=== PATIENT | male | born 1965 | race Caucasian/White ===

== ENCOUNTER 2017-10-06 05:23 | Day surgery (SDC) | payer BC, OTHER ==
[~2017-10-06] VITALS: Ht 180.3 cm; Wt 86.8 kg
--- NOTE | ~2017-10-06 | EKG ---
[place] [address] [address] [facility] [place] [address] ELECTROCARDIOGRAM REPORT Name: GEORGIE RICHARDSON Room #: DEP [facility]..#: [id number] Admission: 10/06/17 Attend Phys: Ajay Charles MD Discharge: 10/06/17 Date of : 61 Report #: [id number] THIS REPORT FOR: //name// [facility] Test Date: 2017-10-06 Test Time: 10:02:08 Pat Name: GEORGIE RICHARDSON Department: Room: 150 2 Gender: M Logger All Round: DENIA : 1965 Requested By: Ajay Charles Order Number: [id number] MD: Satya Forrest Measurements Intervals [place] Rate: 75 P: 42 OR: 164 QRS: 5 QRSD: 90 T: 38 QT: 393 QTc: 439 Interpretive Statements Sinus rhythm Probable left atrial enlargement Early R-wave progression No previous ECG available for comparison Electronically Signed On 10-06-2017 16:49:15 CDT by Satya Forrest [email or web address] <ELECTRONICALLY SIGNED> By: Satya Forrest MD, [facility] 10/06/17 1649 1002 1002 Satya Forrest MD, FACC /EPI
--- NOTE | ~2017-10-06 | O ---
[facility] [place] [address] OPERATIVE REPORT Name: GEORGIE RICHARDSON Room #: DEP [facility]..#: [id number] Admission: 10/06/17 Attend Phys: Ajay Charles MD Discharge: 10/06/17 Date of : 61 Report #: [id number] THIS REPORT FOR: //name// CC: Clayton Charles DATE OF SERVICE: 10/06/2017 PREOPERATIVE DIAGNOSIS: Left knee possible medial meniscus tear. POSTOPERATIVE DIAGNOSIS: Left knee pathologic medial plica. PROCEDURE: Diagnostic left knee arthroscopy with medial plica excision. SURGEON: Ajay Charles MD BASS FISHER: Giselle Tan PA-C. ANESTHESIA: LMA. TOURNIQUET TIME: 12 minutes. COMPLICATIONS: None. SPECIMENS: None. CONDITION UPON LEAVING THE OPERATING ROOM: Stable. INDICATIONS FOR PROCEDURE: The patient is a 52-year-old gentleman who has had medial-sided left knee pain and catching. He has had a previous arthroscopy of his knee with a meniscus surgery of some sort that he was unsure of. He has had continued medial knee pain with symptoms and after discussion with him, he elected for diagnostic left knee arthroscopy with partial medial meniscectomy versus plica excision. DESCRIPTION OF PROCEDURE: Risks, benefits, alternatives and complications were discussed in detail with the patient including but not limited to risk of anesthesia, risk of damage to nerves, arteries and blood vessels, risk for infection and bleeding, risk for continued knee pain and need for reoperation. Informed consent was obtained. The patient's left knee was appropriately marked in the preoperative holding area. IV Ancef was given for preoperative antibiotics. He was brought to the operating room and placed in supine position on operating room table. LMA anesthesia was induced without complication. Tourniquet was placed on the left thigh. Left lower extremity was prepped and draped in normal sterile fashion. Timeout was performed properly identifying the patient and procedure as well as the instrumentation. All in the operating [address] [address] OPERATIVE REPORT Name: DEBRAELSA Room #: [facility] [facility] [place].#: [id number] Admission: 10/06/17 Attend Phys: Ajay Charles MD Discharge: 10/06/17 Date of : 61 Report #: [id number] room were in agreement. Left lower extremity was exsanguinated, tourniquet was inflated. Tourniquet time was 12 minutes. Standard anterolateral portal was established with an 11 blade through the skin. Arthroscope was introduced into the patellofemoral compartment. Diagnostic arthroscopy was undertaken. Patellofemoral compartment was visualized and found to be without pathology. Medial gutter was visualized and found to have a thickened medial plica. Medial compartment was visualized and medial portal was established under arthroscopic visualization. Probe was introduced into the medial compartment and there was noted to be an intact medial meniscus as well as articular cartilage. The notch was visualized and found to have an intact anterior cruciate ligament. Lateral compartment was visualized and found to have an intact lateral meniscus as well as articular cartilage. Scope was placed back in the patellofemoral compartment and the medial plica was excised with an oscillating shaver. After this, all fluid was allowed to drain from the knee. Knee was injected with 10 mL of 0.5% Marcaine. Incision was closed with 3-0 nylon. Soft dressing of Adaptic, 4 x 4, Webril, and Justin wrap were applied. The patient tolerated this procedure well and went to recovery room under care of Anesthesia postoperatively. By: 1204 1302 Ajay Charles MD /nt
[~2017-10-06 05:23] MED LIST: LIPITOR 20 MG T20 M1 PO; LISINOPRIL20 MG PO; SYNTHROID175 MCG PO; XARELTO20 MG PO
[2017-10-06 10:02] VITALS: BP 156/81
[2017-10-06] MEDS ORDERED: HYDROCODONE-AP1 EAC6 PO (11:38)
[2017-10-06 12:09] VITALS: BP 156/81
== END 2017-10-06 12:45 | disposition home or self-care (01) ==
LOC: TBA 05:23 → OR 05:23
DX: M67.52 Plica syndrome, left knee (principal); I10 Essential (primary) hypertension; E78.5 Hyperlipidemia, unspecified; E03.9 Hypothyroidism, unspecified; I73.9 Peripheral vascular disease, unspecified; F17.210 Nicotine dependence, cigarettes, uncomplicated; Z98.890 Other specified postprocedural states; Z79.899 Other long term (current) drug therapy
CPT/HCPCS: 50010; 50101; 50405; 51038; 54170; 56526; 62110; 62900; 70005